=== PATIENT | male | born 1965 | race Two or more races ===

== ENCOUNTER 2024-02-04 19:37 | Emergency (ER) | payer OTHER ==
[~2024-02-04] VITALS: Ht 154.9 cm; Wt 82.6 kg
[2024-02-04] MEDS ORDERED: OMEPRAZOLE20 MG PO (20:09)
[2024-02-04 20:11] VITALS: BP 111/72; O2SAT 98
[2024-02-04] MEDS ORDERED: KETOROLAC TROMETHAMINE 60 MG VIAL IM ONE (20:45)
[2024-02-04] MEDS ORDERED: DICLOFENAC SODI75 MG PO (21:44)
== END 2024-02-04 22:08 | disposition home or self-care (01) ==
LOC: ER 19:39
DX: M94.0 Chondrocostal junction syndrome [Tietze] (principal); Z88.0 Allergy status to penicillin
CPT/HCPCS: 36415; 93005; 96372; 99283; J1885

== ENCOUNTER 2024-02-17 23:24 | Emergency (ER) | payer OTHER ==
[~2024-02-17] VITALS: Ht 154.9 cm; Wt 83.9 kg
[~2024-02-17 23:24] MED LIST: DICLOFENAC SODI75 MG PO; OMEPRAZOLE20 MG PO
[2024-02-17 23:30] VITALS: BP 126/69; O2SAT 97
[2024-02-18] MEDS ORDERED: KETOROLAC TROMETHAMINE 60 MG VIAL IM STA (00:45)
[2024-02-18] MEDS ORDERED: MELOXICAM15 MG PO (00:49)
== END 2024-02-18 00:58 | disposition home or self-care (01) ==
LOC: ER 23:26
DX: R07.89 Other chest pain (principal); M54.9 Dorsalgia, unspecified; Z88.0 Allergy status to penicillin
CPT/HCPCS: 96372; 99282; J1885

== ENCOUNTER 2024-03-11 19:50 | Emergency (ER) | payer OTHER ==
[~2024-03-11] VITALS: Ht 154.9 cm; Wt 82.6 kg
[~2024-03-11 19:50] MED LIST changes: +MELOXICAM15 MG PO
[2024-03-11] MEDS ORDERED: KETOROLAC TROMETHAMINE 60 MG VIAL IM ONE (20:30)
[2024-03-11 20:47] LABS: HEMATOCRIT 42.2 % (39.0-48.0); HEMOGLOBIN 14.7 g/dL (13-16.00); MEAN CELL VOLUME 82.4 fL (80.0-100.00); MEAN CORPUSCULAR HEMOGLOBIN 28.8 pg (27.00-32.0); MEAN CORPUSCULAR HGB CONC 34.9 g/dl (32.0-36.0); PLATELET COUNT 145 K/uL (150-450); RED BLOOD COUNT 5.12 M/uL (4.00-6.00); RED CELL DISTRIBUTION WIDTH 13.8 % (11.5-14.5)
== END 2024-03-11 21:47 | disposition home or self-care (01) ==
LOC: ER 19:52
PROVIDERS: General Practice
DX: R53.81 Other malaise (principal); M94.0 Chondrocostal junction syndrome [Tietze]; Z88.0 Allergy status to penicillin